=== PATIENT | male | born 1955 | race Caucasian/White ===

== ENCOUNTER 2017-04-30 07:25 | Day surgery (SDC) | payer BC ==
[2017-04-30] MEDS ORDERED: FENTANYL PF 100MCG/2ML VIAL IV ONE (14:00)
[2017-04-30] MEDS ORDERED: PROPOFOL 10 MG/ML VIAL IV ONE (14:00)
[2017-04-30] MEDS ORDERED: LIDOCAINE 2% MDV (20MG/ML) 20ML VIAL IV ONE (14:00)
--- NOTE | 2017-05-02 08:10 | Operative Note ---
DATE OF SURGERY: 04/30/2017 Surgeon: Seven Gonzales DO Referring physician: Siddharth Sanchez DO PREOPERATIVE DIAGNOSIS: Abdominal pain. POSTOPERATIVE DIAGNOSIS: Abdominal pain. OPERATION: EGD WITH BIOPSY AND COLONOSCOPY WITH POLYPECTOMY. Anesthesia: Local and IV sedation. Indication: The patient is a 61-year-old male who has had ongoing abdominal pain. All studies so far have been normal. We did discuss endoscopic evaluation. The risks, benefits, and alternatives were discussed. The risks include bleeding, infection, perforation, missed lesion, and he understood this fully. Therefore, consent was signed, questions were answered. PROCEDURE: He was taken to the operating room and placed in the supine position. Local IV sedation was given per the Department of Anesthesia. The patient was rotated into the left lateral position. Propofol anesthesia was titrated to effect. Prior to this a bite block was inserted. At this time, a well lubricated GI gastric scope was placed down the patient's oropharynx and passed down to the GE junction. This did appear somewhat inflamed. The scope was advanced in the stomach. All parts of the stomach were seen, including fundus body, cardia, and antrum. There was distal diffuse enteritis noted. Random biopsies were taken. The pylorus was cannulated and the first two parts of the duodenum were seen. These were grossly normal. The scope was withdrawn back in the stomach, retroflexion was done. There was no hiatal hernia noted. The cardia appeared normal. The scope was withdrawn back to the level of the GE junction, where random biopsies were taken. The gas was evacuated, the scope was fully removed. The patient was rotated 180 degrees. A digital rectal exam was done which revealed no internal masses. A well-lubricated PCF-180AL colonoscope was inserted in the patient's rectum and advanced around to the level of the cecum. Once the cecum was reached there appeared to be a somewhat firm ulcerated region just inferior to the ileocecal valve. Random biopsies were taken. The scope was withdrawn, inspecting all mucosal surface areas. There were normal folds and distensibility seen. There was a polypoid lesion in the upper rectum, which was removed with cold snare. Hemostasis was noted. There was pancolonic diverticulosis noted throughout as well. The scope was retroflexed to his grade 2 hemorrhoids. The scope was then withdrawn. FINDINGS AT THE TIME OF COLONOSCOPY: 1. Distal esophagitis. 2. Enteritis, biopsies pending. 3. Rectal polyp. 4. Pancolonic diverticulosis. 5. Cecal ulcer. We will await histopathology and see him back in a week. CC: Dr. Siddharth BRENNER
== END 2017-04-30 09:40 | disposition home or self-care (01) ==
LOC: HOP 07:25
PROVIDERS: ATTEND Surgery
DX: R10.9 Unspecified abdominal pain (principal); K22.70 Barrett's esophagus without dysplasia; K52.9 Noninfective gastroenteritis and colitis, unspecified; K57.30 Diverticulosis of large intestine without perforation or abscess without bleeding; K63.3 Ulcer of intestine; D12.8 Benign neoplasm of rectum; I10 Essential (primary) hypertension; E78.00 Pure hypercholesterolemia, unspecified; I25.2 Old myocardial infarction
CPT/HCPCS: 45380; 43235; 00810; J3010

== ENCOUNTER 2017-12-23 06:47 | Emergency (ER) | payer BC | END 2017-12-23 06:49 | disposition home or self-care (01) | LOC: ER 06:47 | DX: Z53.20 Procedure and treatment not carried out because of patient's decision for unspecified reasons (principal) | CPT/HCPCS: 80053; 80061 ==